=== PATIENT | female | born 1990 | race Caucasian/White ===

== ENCOUNTER 2017-06-27 15:12 | Outpatient (CLI) | payer BC ==
[~2017-06-27] VITALS: Ht 167.6 cm; Wt 117.5 kg
[~2017-06-27 15:12] MED LIST: ACHD5005 PO; ACHYD1T PO; AZIT-21 PO; C250T PO; CEPH500C; CETI10TA17 PO; CITA10TA70; CYCL10TA9 PO; DCS100C PO; DOXY100C2 PO; DULO30CA PO; HYDR-3583 PO; HYDR-3876 PO; HYDR1TAB8 OP; IBP800T PO; LEVO500T69 PO; LNS30CCR; LORA10TA7 PO; LRT10T PO; MELO-195; METR500T PO; MGX400T PO; MONT10TA21 PO; MPR22T TOP; NAPR-243 PO; NITR-65 PO; OMEP20TA7 PO; ONDAN4ODT; ONDAN4ODT PO; ONDAN4ODT SL; PRAV20TA3 PO; PRD20T PO; PREN1TAB39; PREN1TAB39 PO; SULF1TAB38 PO; TAMS0.4C98 PO; ZLP10T
[2017-06-27] MEDS ORDERED: PRAV40TA2 PO (15:25)
[2017-06-27] MEDS ORDERED: ESCI10TA PO (15:25)
[2017-06-27 15:29] VITALS: BP 112/71
[2017-06-27 15:57] LABS: BASOPHILS % (AUTO) 0 % (0-10); EOSINOPHILS # (AUTO) 0.6 10^3/uL (0.0-0.3); EOSINOPHILS % (AUTO) 7 % (0-10); LYMPHOCYTES % (AUTO) 37 % (12-44); MEAN CORPUSCULAR HEMOGLOBIN 31 PG (25-34); MEAN CORPUSCULAR HGB CONC 34 G/DL (32-36); MEAN CORPUSCULAR VOLUME 91 FL (80-99); MEAN PLATELET VOLUME 11.4 FL (7.4-10.4); MONOCYTES # (AUTO) 0.5 X 10^3 (0.0-1.0); MONOCYTES % (AUTO) 6 % (0-12); NEUTROPHILS # (AUTO) 4.1 X 10^3 (1.8-7.8); NEUTROPHILS % (AUTO) 50 % (42-75); PLATELET COUNT 217 10^3/uL (130-400); RED BLOOD COUNT 4.47 10^6/uL (4.35-5.85); RED CELL DISTRIBUTION WIDTH 13.4 % (10.0-14.5); WHITE BLOOD COUNT 8.2 10^3/uL (4.3-11.0)
== END 2017-06-27 16:00 | disposition home or self-care (01) ==
LOC: PREOP 15:12
PROVIDERS: ATTEND Obstetrics & Gynecology
DX: Z01.812 Encounter for preprocedural laboratory examination (principal); Z11.2 Encounter for screening for other bacterial diseases; N92.0 Excessive and frequent menstruation with regular cycle; D64.9 Anemia, unspecified
CPT/HCPCS: 36415; 85025; 86850; 86900; 86901; 87081

== ENCOUNTER 2017-07-03 11:04 | Day surgery (SDC) | payer BC, MEDICAID ==
[~2017-07-03] VITALS: Ht 167.6 cm; Wt 117.5 kg
[2017-07-03] VITALS (8 sets, daily range): BP systolic 115–124; BP diastolic 74–81
[~2017-07-03 11:04] MED LIST changes: +ESCI10TA PO; +PRAV40TA2 PO
[2017-07-03] MEDS ORDERED: ONDANSETRON 4 MG/2 ML (SDV) Z0FRAN IV ONE (11:15)
[2017-07-03] MEDS ORDERED: CATHETER FLUSH 10 ML SYR IV PRN (11:15)
[2017-07-03] MEDS ORDERED: FAMOTIDINE 20MG/2ML IV (PEPCID) IV ONE (11:15)
[2017-07-03] MEDS ORDERED: ceFAZolin 1 GM/NS 50 ML IVPB IV ONE ×2 (11:15)
[2017-07-03] MEDS ORDERED: SCOPOLAMINE 1.5 MG (TRANSDERM-SCOP) PATCH TOP ONE (11:30)
[2017-07-03] MEDS: LACTATED RINGERS 1,000 ML IV PRN ×2 (11:32→13:45)
[2017-07-03] MEDS ORDERED: BUP/EPI 0.25% 1:200,000 (MARCAINE) 10 ML VIAL IJ ONE (11:51)
[2017-07-03] MEDS ORDERED: LACTATED RINGERS 2,000 ML IV ONE (12:03)
[2017-07-03] MEDS ORDERED: proPOfol 200 MG/20 ML (DIPRIVAN) VIAL IV ONE (12:03)
[2017-07-03] MEDS ORDERED: DEXAMETHASONE PF 10 MG/ML (DECADRON) VIAL ONE (12:03)
[2017-07-03] MEDS ORDERED: LIDOCAINE PF 2% 5 ML (XYLOCAINE) VIAL ONE (12:03)
[2017-07-03] MEDS ORDERED: SEVOFLURANE (ULTANE) 15 ML INHAL SOLN ONE ×5 (12:03→14:28)
[2017-07-03] MEDS ORDERED: ONDANSETRON 4 MG/2 ML (SDV) Z0FRAN ONE (12:03)
[2017-07-03] MEDS ORDERED: fentaNYL INJECTION 100 MCG/2 ML AMP ONE (12:04)
[2017-07-03] MEDS ORDERED: MIDAZOLAM 2 MG/2 ML (VERSED) VIAL ONE (12:04)
--- NOTE | 2017-07-03 13:09 | Progress Note-Pre Operative ---
Pre-Operative Progress Note H&P Reviewed The H&P was reviewed, patient examined and no changes noted. Date Seen by Provider: Jul 03, 2017 Time Seen by Provider: 13:08 Date H&P Reviewed: Jul 03, 2017 Time H&P Reviewed: 13:08 Pre-Operative Diagnosis: DUB/menorrhagia/uterine prolapse FRANCISCO GUERRERO MD Jul 03, 2017 1:09 pm
[2017-07-03] MEDS ORDERED: D5 LR IV SOLUTION 1,000 ML IV SCH (13:10)
--- NOTE | 2017-07-03 13:10 | Progress Note-Post Operative ---
Post-Operative Progess Note Surgeon (s)/Transition Social Worker (s) Surgeon FRANCISCO GUERRERO MD Transition Social Worker: Melissa Szymanski and Pre-Operative Diagnosis DUB/menorrhagia/uterine prolapse Post-Operative Diagnosis same with pathology pending Procedure & Operative Findings Date of Procedure 07/03/17 Procedure Performed/Findings T LH/bilateral salpingectomies Anesthesia Type Gen. Estimated Blood Loss Estimated blood loss (mL): 50 mL Specimens/Packing Specimens Removed uterus and fallopian tubes Packing: none FRANCISCO GUERRERO MD Jul 03, 2017 13:10
[2017-07-03] MEDS ORDERED: oxyCODONE/APAP 10/325MG (PERCOCET 10) TABLET PO PRN (13:15)
[2017-07-03] MEDS ORDERED: ONDANSETRON 4 MG/2 ML (SDV) Z0FRAN IVP PRN (13:15)
[2017-07-03] MEDS ORDERED: WATER (STERILE) FOR INJ 10 ML BTL INJ ONE (13:15)
[2017-07-03] MEDS ORDERED: MEPERIDINE (DEMEROL) INJ 100 MG/ML IM PRN (13:15)
[2017-07-03] MEDS ORDERED: PROMETHAZINE INJ 25 MG/ML (PHENERGAN) AMP IM PRN (13:15)
[2017-07-03] MEDS ORDERED: morphine INJ 10 MG/ML 1ML (SYR OR VIAL) ONE (13:22)
[2017-07-03] MEDS ORDERED: fentaNYL INJECTION 250 MCG/5 ML AMP ONE (13:30)
[2017-07-03] MEDS ORDERED: PROMETHAZINE INJ 25 MG/ML (PHENERGAN) AMP IVP PRN (15:00)
[2017-07-03] MEDS ORDERED: HYDROmorphone (DILAUDID) 2 MG/ML VIAL IVP PRN (15:00)
[2017-07-03] MEDS ORDERED: KETOROLAC 30 MG/ML VIAL IVP ONE (15:00)
[2017-07-03] MEDS ORDERED: KETOROLAC 30 MG/ML VIAL IVP SCH (21:00)
[2017-07-04 00:15] VITALS: BP 97/48
[2017-07-04] MEDS ORDERED: IBUPROFEN 800 MG (MOTRIN) TAB PO ONE (03:16)
[2017-07-04 04:51] VITALS: BP 101/52
--- NOTE | 2017-07-04 07:29 | Progress Note-Standard ---
Standard Progress Note Progress Notes/Assess & Plan Date Seen by Provider: Jul 04, 2017 Time Seen by Provider: 07:28 Progress/Assessment & Plan this patient is without complaint. She is ambulating and voiding. Patient has adequate pain control. She is tolerating by mouth well. Patient denies chest pain, denies shortness of breath, denies nausea vomiting, and denies headache. Vital Signs Date Time Temp Pulse Resp B/P (MAP) Pulse Ox O2 Delivery O2 Flow Rate FiO2 07/04/17 04:51 97.0 67 18 101/52 94 Room Air 07/04/17 00:15 98.4 69 18 97/48 97 Room Air 07/03/17 19:36 Room Air 07/03/17 19:35 98.4 69 17 120/75 97 Room Air 07/03/17 18:30 58 16 115/74 97 Room Air 07/03/17 18:00 66 16 122/75 100 Nasal Cannula 1.00 07/03/17 17:30 97.9 60 16 120/74 100 Nasal Cannula 1.00 07/03/17 17:00 60 16 119/81 100 Nasal Cannula 2.00 07/03/17 16:30 60 16 121/79 98 Nasal Cannula 2.00 07/03/17 16:15 97.7 63 16 124/79 96 Nasal Cannula 2.00 07/03/17 13:30 98.0 07/03/17 11:25 96.8 72 18 121/80 99 Room Air I & O 07/04/17 07:00 Intake Total 3550 ml Output Total 2775 ml Balance 775 ml vital signs are stable. Patient is afebrile. The abdomen is benign. Extremities show no clubbing or cyanosis. There is no Homans sign. Assessment and plan postoperative day number 1 doing well. Plan is for discharge home with follow-up in clinic. Final Diagnosis dysfunctional uterine bleeding/menorrhagia FRANCISCO GUERRERO MD Jul 04, 2017 7:29 am
[2017-07-04] MEDS ORDERED: DOCU100C37 PO (07:31)
[2017-07-04] MEDS ORDERED: IBUP-1780 PO (07:31)
[2017-07-04] MEDS ORDERED: OXYC-465 PO (07:31)
--- NOTE | 2017-07-04 07:33 | Discharge Instructions ---
Discharge Instructions Discharge Medications New, Converted or Re-Newed RX: RX on Chart Patient Instructions Patient Instructions: as directed Return to The Hospital For: as directed Activity & Diet Discharge Diet: No Restrictions Activity as Tolerated: No Orders-Post D/C & Referrals Follow Up Appt: return to clinic on Saturday, July 05, 2017 at 930 a.m. for staple removal Call to make follow up appt. for patient in 4 weeks. Activity: Rest for 24 hours, than as tolerated. Wound Care: May remove Band-Aid tomorrow. Replace as desired. Keep incisions clean and dry. Wash daily with soap and water. Please call in RX to patient pharmacy. Diet: As tolerated-Clear Liquids only if nauseated May shower or tub bathe as desired. No driving for 24 hours, no alcoholic beverages for 24 hours, and nothing per vagina (no tampons, douching, or intercourse) for 8 weeks. Patient to return to the clinic as soon as possible for: Temperature greater than 101F, Severe Pain, Foul discharge from incision or vagina, Excessive Bleeding (more than a period). FRANCISCO GUERRERO MD Jul 04, 2017 7:32 am
[2017-07-04 08:00] VITALS: BP 111/60
[2017-07-04] MEDS ORDERED: DOCUSATE SODIUM 100 MG (COLACE) CAP PO SCH (09:00)
--- NOTE | 2017-07-04 10:57 | OPERATIVE REPORT ---
PROCEDURE PHYSICIAN: FRANCISCO GUERRERO DATE OF PROCEDURE: 07/03/2017 PREOPERATIVE DIAGNOSES: 1. Dysfunctional uterine bleeding. 2. Menorrhagia. 3. Uterine prolapse. POSTOPERATIVE DIAGNOSES: 1. Dysfunctional uterine bleeding. 2. Menorrhagia. 3. Uterine prolapse. OPERATIVE PROCEDURE: Total laparoscopic hysterectomy with bilateral salpingectomies. OPERATIVE DESCRIPTION: With the patient in the supine position, under satisfactory general anesthesia, she was repositioned in dorsal lithotomy position in the [facility] and prepped and draped in the usual fashion for abdominal and vaginal surgery. The ureter urinary bladder was drained via Noyola catheter to dependent drainage. A weighted speculum was placed in posterior fornix of the vagina. The cervix exposed and grasped anteriorly with single-tooth tenaculum. The uterus is sounded to 11 cm with uterine sound. The cervix was then sterilely dilated with Kaushik dilators to accommodate a uterine manipulator, which was placed using a NABIL 2 manipulator with a 6 mm x 8 cm uterine probe and a 30 mm colpotomy ring. Sutures of number 1 Vicryl were placed at 3 and 9 o'clock positions of the cervix for securing the uterine cervix to the uterine manipulator. The patient brought in a low dorsal lithotomy position. A 12 mm incision made approximately 4 cm superior to the umbilicus. 8 mm incisions were made 9 cm lateral to the umbilicus. All 3 incision/port sites were infiltrated with 0.25% Marcaine with epinephrine prior to incision. Veress needle was placed through the midline incision, correct placement confirmed with the water drop test. The abdomen was insufflated with 2.4 liters of carbon dioxide and then the Veress needle was removed and the 12 mm port placed. The laparoscope was introduced. The abdominal wall was transilluminated and ports of 8 mm were placed through the lateral incisions under direct vision as well. The patient was placed in Trendelenburg, allowing the bowel to spilled up out of the pelvis. The operative instruments were positioned. Using the vessel sealer on the right and a bipolar fenestrated grasper on the left, the pelvis was first examined. Both ovaries were normal. The fallopian tubes were somewhat tortuous. The right fallopian tube seen to have some degree of hydrosalpinx. There was paratubal cyst on the right. The uterus was mottled in appearance, large and boggy. The laparoscope was rotated. The appendix was identified. It was a normal vermiform appendix. The laparoscope was brought back to the pelvis. The right fallopian tube was grasped and elevated using the vessel sealer. The Santillan mesosalpinx was clamped, cauterized, and divided over to the side of uterus. The utero-ovarian pedicle as well as the round ligament, broad ligament and eventually the cardinal ligament were clamped, cauterized, and divided as well. The same procedure was performed on the left allowing for removal of both fallopian tubes eventually with the uterus. Using the monopolar astrid in place of the vessel sealer, the anterior lower uterine segment peritoneum was divided. The bladder was carefully dissected down off the lower uterine segment. Colpotomy incision was started at 12 o'clock position onto the colpotomy ring. That incision was continued circumferentially until the entire colpotomy ring was exposed. The uterus, with the fallopian tube still attached, was removed through the vagina. The vaginal cuff was closed using 2 sutures of V-LOC micaela suture starting first from the right angle of the vagina and continuing to the midportion and taking care to include the cardinal ligament and the cauterized ends of the uterine arteries bilaterally. The hemostasis was complete. The pelvis was irrigated and examined for hemostasis, which was complete. There had been a small nodular mass sitting in the pelvis that could have been a retained gallstone versus a calcified epiploic fat. That piece of tissue had been released after removal of the uterus and placed in the vagina. It was now extracted and sent to pathology separately. Both ureters were seen to peristaltic before, during, and after the procedure. There was no remaining pathology once the uterus with the tubes was removed through the vagina. With the procedure complete, the operative instruments were removed under direct vision, as were the ports. The abdomen was evacuated of insufflating gas in the process of removing the port. The port sites were hemostatic. All 3 skin incisions were stapled. The fascia at the umbilical incision was closed with [id number] suture of 2-0 Vicryl. The speculum was replaced in the vagina. The vaginal cuff examined for complete reapproximation and hemostasis, which was satisfactory. Sponge and needle counts were correct at the end of the procedure. Estimated blood loss for the procedure was around 50 mL or less. The patient tolerated the procedure well and was transferred to recovery room in stable condition after being uneventfully awakened from her general anesthesia. Job ID: [id number] Dictated Date: 07/03/2017 22:53:19 Oil Burner Repairer Date: 07/04/2017 10:42:04 / jessica
[2017-07-04] MEDS ORDERED: IBUPROFEN 800 MG (MOTRIN) TAB PO SCH (15:00)
== END 2017-07-04 08:30 | disposition home or self-care (01) ==
LOC: SDC 11:04 → WS 16:01 → SDC 07-04 08:30
PROVIDERS: ATTEND Obstetrics & Gynecology
DX: N83.8 Other noninflammatory disorders of ovary, fallopian tube and broad ligament (principal); N81.4 Uterovaginal prolapse, unspecified; E78.5 Hyperlipidemia, unspecified; F17.210 Nicotine dependence, cigarettes, uncomplicated; F32.9 Major depressive disorder, single episode, unspecified; F41.9 Anxiety disorder, unspecified; K21.9 Gastro-esophageal reflux disease without esophagitis; E66.01 Morbid (severe) obesity due to excess calories; Z68.41 Body mass index [BMI] 40.0-44.9, adult
CPT/HCPCS: 84703; 88305; 88307; 94664; 96361; 96375

== ENCOUNTER 2017-07-08 22:13 | Emergency (ER) | payer BC ==
[~2017-07-08] VITALS: Ht 165.1 cm; Wt 117.9 kg
[~2017-07-08 22:13] MED LIST changes: +DOCU100C37 PO; +IBUP-1780 PO; +OXYC-465 PO
[2017-07-08] MEDS ORDERED: PHEN-827 (22:38)
[2017-07-08] MEDS ORDERED: NITR100C10 (22:38)
[2017-07-08 22:52] LABS: BILIRUBIN,URINE NEGATIVE (NEGATIVE); KETONES,URINE NEGATIVE (NEGATIVE); LEUKOCYTE ESTERASE ,URINE NEGATIVE (NEGATIVE); NITRITE,URINE NEGATIVE (NEGATIVE); PH,URINE 7 (5-9); PROTEIN,URINE NEGATIVE (NEGATIVE); UROBILINOGEN,URINE NORMAL (NORMAL)
[2017-07-08 23:06] LABS: SQUAMOUS EPITHELIAL CELL,UR RARE /HPF
[2017-07-08] MEDS ORDERED: ALFUZOSIN HCL 10 MG TAB (UROXATRAL) PO ONE (23:17)
[2017-07-08] MEDS ORDERED: PHENAZOPYRIDINE 100 MG (PYRIDIUM) TABLET ONE (23:17)
[2017-07-08] MEDS ORDERED: TAMS0.4C98 PO (23:19)
[2017-07-08] MEDS ORDERED: PHEN-640 PO (23:19)
--- NOTE | 2017-07-08 23:19 | ED GU-Female ---
General Chief Complaint: -Female Stated Complaint: POST HYSTERECTOMY,BLADDER PAIN Nursing Triage Note: PAINFUL FREQUENT URINATION Nursing Sepsis Screen: Possible Sepsis Risk Source: patient History of Present Illness Time seen by provider: 22:40 Initial Comments PT HAD ROBOTIC / LAPAROSCOPIC HYSTERECTOMY BY DR. GUERRERO LAST SATURDAY BEGAN HAVING BLADDER PAIN ON SATURDAY--PAIN ON URINATION, URGENCY, FREQUENCY, SMALL AMOUNTS, SENSATION OF INCOMPLETE EMPTYING--STATES SHE HAS BEEN URINATING EVERY 20-[address] GUERRERO IN OFFICE ON SATURDAY FOR STAPLE REMOVAL, AND WAS STARTED ON MACROBID AND GIVEN RX FOR PYRIDIUM #6 PILLS STATES SYMPTOMS WERE BETTER WHILE SHE WAS TAKING PYRIDIUM, BUT HAS PROGRESSIVELY GOTTEN WORSE SINCE SHE RAN OUT. NO FEVER NO NAUSEA/VOMITING TOOK OXYCODONE X 1 DOSE TODAY AT 2114 AND HAS TAKEN IBUPROFEN 2-3 TIMES TODAY, LAST DOSE AT 1999 TONIGHT PCP: DR. HOPSON IMMIGRATION PARALEGAL: DR. GUERRERO Allergies and Home Medications Allergies Coded Allergies: acetaminophen (Verified Allergy, Intermediate, ELEVATED LIVER ENZYMES, ) aripiprazole (Verified Allergy, Intermediate, SWELLING/ITCHING, 06/27/17) bupropion (Unverified Allergy, Mild, 06/27/17) amoxicillin (Verified Adverse Reaction, Intermediate, N/V, 07/03/17) clavulanic acid (Verified Adverse Reaction, Intermediate, N/V, 07/03/17) morphine (Unverified Adverse Reaction, Mild, excessive sedation, 06/27/17) Home Medications Docusate Sodium 100 Mg Capsule, 100 MG PO BID, #60 Prescribed by: FRANCISCO MCKNIGHT on 07/04/17 0731 Escitalopram Oxalate 10 Mg Tablet, 10 MG PO DAILY, (Reported) Ibuprofen 800 Mg Tablet, 800 MG PO Q6H, #60 Prescribed by: FRANCISCO MCKNIGHT on 07/04/17 0731 Loratadine 10 Mg Tablet, 10 MG PO DAILY, (Reported) Montelukast Sodium 10 Mg Tablet, 10 MG PO DAILY, (Reported) Nitrofurantoin Monohyd/M-Cryst 100 Mg Capsule, #10 (Reported) Omeprazole 20 Mg Tablet., 20 MG PO DAILY, (Reported) Oxycodone HCl/Acetaminophen 1 Each Tablet, 1-2 TAB PO Q4HR PRN for PAIN- MODERATE TO SEVERE, #60 Prescribed by: FRANCISCO MCKNIGHT on 07/04/17 0731 Phenazopyridine HCl 200 Mg Tablet, #6 (Reported) Phenazopyridine HCl 200 Mg Tablet, 1 TAB PO TID, #15 Prescribed by: JAMISON AMADO on 07/08/17 2319 Pravastatin Sodium 40 Mg Tablet, 40 MG PO HS, (Reported) Tamsulosin HCl 0.4 Mg Cap, 0.4 MG PO DAILY, #10 Prescribed by: JAMISON AMADO on 07/08/17 2319 Constitutional: no symptoms reported Respiratory: no symptoms reported Cardiovascular: no symptoms reported Gastrointestinal: see HPI Genitourinary: see HPI Musculoskeletal: no symptoms reported Skin: no symptoms reported Psychiatric/Neurological: No Symptoms Reported Past Ynakknk-Zkzymv-Kyetmn Hx Patient Social History Alcohol Use: Denies Use Recreational Drug Use: No Smoking Status: Current Everyday Smoker Type Used: Cigarettes 2nd Hand Smoke Exposure: Yes Recent Foreign Travel: No Contact w/Someone Who Travel: No Recent Infectious Disease Expo: No Recent Hopitalizations: Yes (PARTIAL HYSTERECTOMY 07/03/17) Immunizations Up To Date Tetanus Booster (TDap): Less than 5yrs Date of Influenza Vaccine: Sep 01, 2012 Seasonal Allergies Seasonal Allergies: Yes Surgeries HX Surgeries: Yes (D & C, BILATERAL FEET, CS X2, ESWL) Surgeries: Adenoidectomy, Section, Gallbladder, Hysterectomy, Renal, Tonsillectomy Respiratory Hx Respiratory Disorders: No Cardiovascular Hx Cardiac Disorders: No Neurological Hx Neurological Disorders: Yes (HX SHINGLES 05/2017) Neurological Disorders: Headaches /Migraines Reproductive System Hx Reproductive Disorders: Yes (DUB, MENORRHAGIA, UTERINE PROLAPSE) Sexually Transmitted Disease: No HIV/AIDS: No Female Reproductive Disorders: Menstrual Problems, Endometriosis, Ovarian Cyst IMMIGRATION PARALEGAL History: Hysterectomy Genitourinary Hx Genitourinary Disorders: Yes Genitourinary Disorders: Kidney Stones, UTI-Chronic Gastrointestinal Hx Gastrointestinal Disorders: Yes (FATTY LIVER) Gastrointestinal Disorders: Gastroesophageal Reflux, Liver Disease/Jaundice Musculoskeletal Hx Musculoskeletal Disorders: Yes Musculoskeletal Disorders: Chronic Back Pain Endocrine Hx Endocrine Disorders: No HEENT HX ENT Disorders: Yes (GLASSES AT TIMES) Loss of Vision: Bilateral Hearing Impairment: Denies Cancer Hx Cancer: No Psychosocial Hx Psychiatric Problems: Yes Behavioral Health Disorders: Anxiety, Depression Integumentary HX Skin/Integumentary Disorder: No Blood Transfusions Hx Blood Disorders: No Adverse Reaction to a Blood Tr: No (N/A) Family Medical History Significant Family History: No Pertinent Family Hx Physical Exam Vital Signs Vital Sign - Last 12Hours 07/08/17 22:38 Temp 97.7 Pulse 123 Resp 26 B/P (MAP) 135/97 Pulse Ox 94 O2 Delivery Room Air Capillary Refill : Less Than 3 Seconds General Appearance: obese, other (CRYING. ) Cardiovascular: regular rate, rhythm, no murmur Respiratory: normal breath sounds, no respiratory distress, no accessory muscle use Gastrointestinal: normal bowel sounds, soft, no organomegaly, no pulsatile mass , No distended, No guarding, No rebound, tenderness (MODERATE TENDERNESS TO SUPRAPUBIC AREA. ), other (3 INCISIONS ARE CLEAN, DRY AND INTACT, WITH MILD LOCAL ERYTHEMA SURROUNDING EACH WOUND. NO DRAINAGE. 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, no motor/sensory deficits, alert, oriented x 3 Skin: normal color, warm/dry Progress/Results/Core Measures Results/Orders Lab Results Laboratory Tests Test 07/08/17 22:35 Range/Units Urine Color YELLOW Urine Clarity CLEAR Urine pH 7 5-9 Urine Specific [place] 1.005 L 1.016-1.022 Urine Protein NEGATIVE NEGATIVE Urine Glucose (UA) NEGATIVE NEGATIVE Urine Ketones NEGATIVE NEGATIVE Urine Nitrite NEGATIVE NEGATIVE Urine Bilirubin NEGATIVE NEGATIVE Urine Urobilinogen NORMAL NORMAL MG/DL Urine Leukocyte Esterase NEGATIVE NEGATIVE Urine RBC (Auto) NEGATIVE NEGATIVE Urine RBC NONE /HPF Urine WBC NONE /HPF Urine Squamous Epithelial Cells RARE /HPF Urine Crystals NONE /LPF Urine Bacteria NONE /HPF Urine Casts NONE /LPF Urine Mucus NEGATIVE /LPF Urine Culture Indicated NO My Orders Orders - JAMISON AMADO DO Bladder Scan (07/08/17 22:47) Ua Culture If Indicated (07/08/17 22:47) Phenazopyridine Tablet (Pyridium Tablet) (07/08/17 23:30) Alfuzosin Tablet (Uroxatral Tablet) (07/08/17 23:30) Phenazopyridine Tablet (Pyridium Tablet) (07/08/17 23:17) Alfuzosin Tablet (Uroxatral Tablet) (07/08/17 23:17) Medications Given in ED Current Medications Medications Dose Ordered Sig/Bao Route Start Time Stop Time Status Last Admin Dose Admin Phenazopyridine HCl 200 mg ONCE ONCE PO 07/08/17 23:30 07/08/17 23:30 DC 07/08/17 23:24 200 MG Vital Signs/I&O Vital Sign - Last 12Hours 07/08/17 07/08/17 22:38 23:26 Temp 97.7 97.7 Pulse 123 96 Resp 26 18 B/P (MAP) 135/97 Pulse Ox 94 96 O2 Delivery Room Air Room Air Intake and Output 07/09/17 00:00 Output Total 16 ml Balance -16 ml Blood Pressure Mean: 110 Progress Note : Progress Note BLADDER SCAN--16 ML URINE Departure Impression Impression: Primary Impression: Dysuria Additional Impression: Painful bladder spasm Disposition: HOME, SELF-CARE Condition: Stable Departure-Patient Inst. Referrals: FRANCISCO GUERRERO MD, RACHEL L MD (PCP/Family) Primary Care Physician Patient Instructions: Bladder Spasms (DC) Add. Discharge Instructions: CONTINUE YOUR CURRENT PAIN MEDICATIONS PRESCRIBED LOTS OF CLEAR LIQUIDS--WATER, BROTH, JELLO, GATORADE--NO COFFEE, POP OR TEA FINISH MACROBID FOLLOW UP WITH DR. GUERRERO IN 2-3 DAYS IF NO BETTER All discharge instructions reviewed with patient and/or family. Voiced understanding. Scripts Tamsulosin HCl (Flomax) 0.4 Mg Cap 0.4 MG PO DAILY, #10 CAP Prov: JAMISON AMADO DO 07/08/17 Phenazopyridine HCl (Pyridium) 200 Mg Tablet 1 TAB PO TID for BLADDER DISCOMFORT, #15 TAB Prov: JAMISON AMADO DO 07/08/17 JAMISON AMADO DO Jul 08, 2017 11:19 pm
[2017-07-08 23:26] VITALS: BP 95/57
[2017-07-08] MEDS ORDERED: PHENAZOPYRIDINE 100 MG (PYRIDIUM) TABLET PO ONE (23:30)
[2017-07-08] MEDS ORDERED: ALFUZOSIN HCL 10 MG TAB (UROXATRAL) PO SCH (23:30)
== END 2017-07-08 23:25 | disposition home or self-care (01) ==
LOC: EDUNIT# 22:13 → ER 22:16
DX: R30.0 Dysuria (principal); N32.89 Other specified disorders of bladder; G43.909 Migraine, unspecified, not intractable, without status migrainosus; K21.9 Gastro-esophageal reflux disease without esophagitis; M54.9 Dorsalgia, unspecified; G89.29 Other chronic pain; F41.9 Anxiety disorder, unspecified; F32.9 Major depressive disorder, single episode, unspecified; F17.210 Nicotine dependence, cigarettes, uncomplicated; Z87.19 Personal history of other diseases of the digestive system; Z87.448 Personal history of other diseases of urinary system; Z90.711 Acquired absence of uterus with remaining cervical stump; Z87.59 Personal history of other complications of pregnancy, childbirth and the puerperium; Z90.89 Acquired absence of other organs
CPT/HCPCS: 81000; 99283

== ENCOUNTER → 2018-06-03 | Outpatient (CLI) | payer BC ==
[~2018-06-03] MED LIST changes: +NITR100C10; +PHEN-640 PO; +PHEN-827
--- NOTE | 2018-06-03 11:33 | Diagnostic Imaging Report ---
PROCEDURE: MRI left joint lower extremity without contrast. TECHNIQUE: Multiplanar, multisequence non contrast-enhanced MRI of the left lower extremity was accomplished. INDICATION: Left knee pain and swelling. FINDINGS: The anterior cruciate and posterior cruciate ligaments are intact. The medial collateral ligaments are intact. The biceps femoris, fibular collateral, popliteus and iliotibial band are intact. Both the medial and lateral meniscus are normal in signal intensity and morphology. Quadriceps tendon and patellar tendons are intact. There is a knee joint effusion. The articular cartilage is well maintained. There are no areas of underlying marrow edema. IMPRESSION: Small knee joint effusion. No other internal derangement of the knee. Dictated by: Dictated on workstation # [id number]
== END ==
LOC: RAD 07:12
PROVIDERS: ATTEND Physician Assistant
DX: M25.562 Pain in left knee (principal); M25.462 Effusion, left knee
CPT/HCPCS: 73721